=== PATIENT | male | born 1970 | race Caucasian/White ===

== ENCOUNTER 2020-08-25 00:24 | Emergency (ER) | payer MEDICARE, MEDICAID ==
[~2020-08-25] VITALS: Ht 172.7 cm; Wt 78.0 kg
[~2020-08-25 00:24] MED LIST: BENZTROPINE; CARB100O; CLONAZEPAM; DULOXETINE; GEODON; INVEGA
[2020-08-25 00:58] VITALS: BP 138/80
[2020-08-25] MEDS ORDERED: ACETAMINOPHEN 325MG TABLET PO ONE (01:30)
== END 2020-08-25 02:10 | disposition home or self-care (01) ==
LOC: ER 00:24
DX: J02.9 Acute pharyngitis, unspecified (principal); J45.909 Unspecified asthma, uncomplicated; F20.9 Schizophrenia, unspecified
CPT/HCPCS: 93005; 99283